=== PATIENT | male | born 1980 | race Caucasian/White ===

== ENCOUNTER 2023-08-10 09:48 | Emergency (ER) | payer SELFPAY ==
[~2023-08-10] VITALS: Ht 170.2 cm; Wt 74.8 kg
[2023-08-10 09:49] VITALS: BP 131/77; PULSE 71; RESP 20; TEMP 96.2; O2SAT 99
[2023-08-10] MEDS ORDERED: IBUP-2213 PO (10:10)
[2023-08-10] MEDS ORDERED: CEPH500C16 PO (10:10)
[2023-08-10] MEDS ORDERED: ACETAMINOPHEN EXTRA STRENGTH 500 MG TAB ONE (10:11)
[2023-08-10] MEDS ORDERED: IBUPROFEN 600 MG TAB ONE (10:11)
[2023-08-10] MEDS: IBUPROFEN 600 MG TAB PO ONE (10:14)
[2023-08-10] MEDS: ACETAMINOPHEN EXTRA STRENGTH 500 MG TAB PO ONE (10:15)
[2023-08-10] MEDS ORDERED: CIPR750T5 PO (10:28)
[2023-08-10 10:35] VITALS: BP 126/69; PULSE 73; RESP 16; O2SAT 99
== END 2023-08-10 10:35 | disposition home or self-care (01) ==
LOC: MED 09:48
DX: S91.332A Puncture wound without foreign body, left foot, initial encounter (principal); L03.116 Cellulitis of left lower limb; Z79.1 Long term (current) use of non-steroidal anti-inflammatories (NSAID); Z79.2 Long term (current) use of antibiotics; W45.0XXA Nail entering through skin, initial encounter; Y92.89 Other specified places as the place of occurrence of the external cause; Y93.89 Activity, other specified; Y99.8 Other external cause status
CPT/HCPCS: 73630; 99283